=== PATIENT | male | born 1970 | race African-American/Black ===

== ENCOUNTER 2019-04-06 21:33 | Emergency (ER) | payer OTHER ==
[~2019-04-06] VITALS: Ht 175.3 cm; Wt 75.0 kg
[2019-04-07] MEDS ORDERED: IBUPROFEN 600MG TABLET PO STA (00:09)
[2019-04-07 15:15] VITALS: BP 128/79
== END 2019-04-07 15:26 | disposition home or self-care (01) ==
LOC: ER 21:33
DX: M54.5 Low back pain (principal); M25.561 Pain in right knee; F17.210 Nicotine dependence, cigarettes, uncomplicated; E11.9 Type 2 diabetes mellitus without complications; Z59.0 Homelessness; Y08.89XA Assault by other specified means, initial encounter; Y93.89 Activity, other specified; Y92.89 Other specified places as the place of occurrence of the external cause; Y99.8 Other external cause status
CPT/HCPCS: 72100; 73562; 82962; 99284

== ENCOUNTER 2019-04-17 16:56 | Emergency (ER) | payer SELFPAY ==
[~2019-04-17] VITALS: Ht 170.2 cm; Wt 64.0 kg
[2019-04-17] MEDS ORDERED: IBUPROFEN 600MG TABLET PO ONE (18:15)
[2019-04-17 20:21] VITALS: BP 136/84
== END 2019-04-17 20:22 | disposition home or self-care (01) ==
LOC: ER 17:05
DX: M25.561 Pain in right knee (principal); R03.0 Elevated blood-pressure reading, without diagnosis of hypertension; E11.9 Type 2 diabetes mellitus without complications
CPT/HCPCS: 73560; 99283